=== PATIENT | male | born 1950 | race Caucasian/White ===

== ENCOUNTER 2020-03-23 19:31 | Emergency (ER) | payer MEDICARE ==
[~2020-03-23] VITALS: Ht 177.8 cm; Wt 125.2 kg
[2020-03-23] MEDS ORDERED: OXYC5 PO (20:06)
[2020-03-23] MEDS ORDERED: TIZANIDINE (20:07)
[2020-03-23] MEDS ORDERED: Fosinopril Sodi10 MG PO (20:08)
[2020-03-23] MEDS ORDERED: POTASSIUM CHLORIDE E PO (20:08)
[2020-03-23] MEDS ORDERED: FURO40 PO (20:08)
[2020-03-23] MEDS ORDERED: NIFEDIPINE ER 60 MG PO (20:09)
[2020-03-23] MEDS ORDERED: [UNRECOGNIZED DRUG - OTHER] PO (20:09)
[2020-03-23] MEDS ORDERED: GLIM2 PO (20:09)
[2020-03-23 20:14] LABS: BASOPHILS ABSOLUTE AUTO 0.08 K/mm3 (0.00-0.23); BASOPHILS PERCENT AUTO 1 % (0-2); EOSINOPHILS ABSOLUTE AUTO 0.12 K/mm3 (0.00-0.68); EOSINOPHILS PERCENT AUTO 1 % (0-6); Hematocrit 35.4 % (37.0-53.0); Hemoglobin 11.4 g/dL (13.5-17.5); IMMATURE GRAN ABSOLUTE AUTO 0.03 K/mm3 (0.00-0.10); IMMATURE GRAN PERCENT AUTO 0 % (0-1); LYMPHOCYTES ABSOLUTE AUTO 2.17 K/mm3 (0.84-5.20); LYMPHOCYTES PERCENT AUTO 26 % (21-46); MONOCYTES PERCENT AUTO 13 % (4-13); Mean Corpuscular HGB 31.1 pg (26.0-34.0); Mean Corpuscular HGB Conc 32.2 g/dL (31.5-36.5); Mean Corpuscular Volume 97 fL (80-100); Mean Platelet Volume 10.6 fL (9.1-12.4); NEUTROPHILS ABSOLUTE AUTO 4.95 K/mm3 (1.96-9.15); NEUTROPHILS PERCENT AUTO 59 % (41-73); Platelet Count 210 K/mm3 (150-400); RDW Coefficient Variation 12.7 % (11.7-14.2); RDW Standard Deviation 45.2 fL (35.1-46.3); Red Blood Cell Count 3.67 M/mm3 (4.30-5.90); White Blood Cell Count 8.45 K/mm3 (4.00-11.30)
[2020-03-23 20:26] LABS: Albumin, Blood 2.8 g/dL (3.4-5.0); Albumin/Globulin Ratio 0.7 (0.8-1.8); Bilirubin, Total 0.7 mg/dL (0.1-1.0); Calcium, Blood 9.4 mg/dL (8.5-10.1); Creatinine, Blood 1.39 mg/dL (0.60-1.20); Globulin, Blood 3.8 g/dL (2.2-4.0); Potassium, Blood 4.3 mmol/L (3.5-5.5); Total Protein, Blood 6.6 g/dL (6.4-8.2)
[2020-03-24] MEDS ORDERED: Fosinopril Sodi20 MG PO (13:47)
[2020-03-24] MEDS ORDERED: LABE200 PO (13:47)
[2020-03-24] MEDS ORDERED: Actos30 MG PO (13:48)
[2020-03-24] MEDS ORDERED: K-Dur 20 meq T20 MEQ PO (13:48)
[2020-03-24] MEDS ORDERED: GLIM2 PO (13:48)
[2020-03-24] MEDS ORDERED: Afeditab Cr60 MG PO (13:49)
== END 2020-03-24 00:34 | disposition home or self-care (01) ==
LOC: ER 19:31
PROVIDERS: Emergency Medicine
DX: I95.9 Hypotension, unspecified (principal); I10 Essential (primary) hypertension; E11.9 Type 2 diabetes mellitus without complications; Z79.899 Other long term (current) drug therapy
CPT/HCPCS: 71045; 80053; 85025; 93005; 93010; 96360; 96361; 99285-25; J7030

== ENCOUNTER 2020-03-24 10:21 | Inpatient (IN) | payer MEDICARE ==
[~2020-03-24] VITALS: Ht 177.8 cm; Wt 107.0 kg
[~2020-03-24 10:21] MED LIST: FURO40 PO; Fosinopril Sodi10 MG PO; GLIM2 PO; NIFEDIPINE ER 60 MG PO; OXYC5 PO; POTASSIUM CHLORIDE E PO; TIZANIDINE; [UNRECOGNIZED DRUG - OTHER] PO
[2020-03-24 11:04] LABS: BASOPHILS ABSOLUTE AUTO 0.05 K/mm3 (0.00-0.23); BASOPHILS PERCENT AUTO 1 % (0-2); EOSINOPHILS ABSOLUTE AUTO 0.05 K/mm3 (0.00-0.68); EOSINOPHILS PERCENT AUTO 1 % (0-6); Hematocrit 39.3 % (37.0-53.0); Hemoglobin 12.7 g/dL (13.5-17.5); IMMATURE GRAN ABSOLUTE AUTO 0.03 K/mm3 (0.00-0.10); IMMATURE GRAN PERCENT AUTO 0 % (0-1); LYMPHOCYTES ABSOLUTE AUTO 1.16 K/mm3 (0.84-5.20); LYMPHOCYTES PERCENT AUTO 14 % (21-46); MONOCYTES ABSOLUTE AUTO 0.94 K/mm3 (0.16-1.47); MONOCYTES PERCENT AUTO 11 % (4-13); Mean Corpuscular HGB 30.8 pg (26.0-34.0); Mean Corpuscular HGB Conc 32.3 g/dL (31.5-36.5); Mean Corpuscular Volume 95 fL (80-100); Mean Platelet Volume 10.5 fL (9.1-12.4); NEUTROPHILS ABSOLUTE AUTO 6.15 K/mm3 (1.96-9.15); NEUTROPHILS PERCENT AUTO 73 % (41-73); Platelet Count 216 K/mm3 (150-400); RDW Coefficient Variation 12.7 % (11.7-14.2); RDW Standard Deviation 44.9 fL (35.1-46.3); Red Blood Cell Count 4.13 M/mm3 (4.30-5.90); White Blood Cell Count 8.38 K/mm3 (4.00-11.30)
[2020-03-24 11:26] LABS: Troponin I <0.015 ng/mL (0.000-0.040)
[2020-03-24 11:27] LABS: Alanine Aminotransfer (ALT/SGP 26 U/L (12-78); Albumin, Blood 2.8 g/dL (3.4-5.0); Albumin/Globulin Ratio 0.7 (0.8-1.8); Alk Phos 82 U/L (50-136); Anion Gap 4 mmol/L (6-16); Aspartate Aminotrans (AST/SGOT 14 U/L (12-37); Bilirubin, Total 0.6 mg/dL (0.1-1.0); Blood Urea Nitrogen 21 mg/dL (8-24); Bun/Creatinine Ratio 21.9 (12.0-20.0); CO2, Blood 28 mmol/L (21-32); Calcium, Blood 9.7 mg/dL (8.5-10.1); Chloride, Blood 107 mmol/L (98-108); Creatinine, Blood 0.96 mg/dL (0.60-1.20); Globulin, Blood 4.3 g/dL (2.2-4.0); Glomerular Filtration Rate >60 (60-); Glucose, Blood 181 mg/dL (70-99); Potassium, Blood 4.6 mmol/L (3.5-5.5); Sodium, Blood 139 mmol/L (136-145); Total Protein, Blood 7.1 g/dL (6.4-8.2)
[2020-03-24] MEDS ORDERED: LABE200 PO (13:47)
[2020-03-24] MEDS ORDERED: Fosinopril Sodi20 MG PO (13:47)
[2020-03-24] MEDS ORDERED: K-Dur 20 meq T20 MEQ PO (13:48)
[2020-03-24] MEDS ORDERED: GLIM2 PO (13:48)
[2020-03-24] MEDS ORDERED: Actos30 MG PO (13:48)
[2020-03-24] MEDS ORDERED: Afeditab Cr60 MG PO (13:49)
--- NOTE | 2020-03-24 18:06 | NUR ---
PT ADMITTED FROM ER THIS SHIFT FOR PE. PT IS IN NO DISTRESS. HE IS ON 4 L O2 WHICH IS NOT HIS BASELINE. PT IS ALERT AND ORIENTED AND ABLE TO EXPRESS ANY CONCERNS. PTS LEFT ARM IS FLACID DUE TO RECENT AFFECTS FROM NECK SURGURY. HE REQUIRES ASSISTANCE WITH SOME ADL'S . HIS NECK REMAINS IN A BRACE AT THIS TIME. PT IS ABLE TO AMBULATE , REQUIRING ASSISTANCE GETTING OUT OF BED D/T LEFT ARM . PT REPORTS NO PAIN, SOB UPON EXERCTION. CALL LIGHT WITHIN REACH.
--- NOTE | 2020-03-25 04:19 | NUR ---
03/25/20 0245 PT HAD SUDDEN ONSET OF NAUSIA WITH BARRETO EMISIS. PT CLEANED UP, ORDER FOR ZOFRAN RECEUVED, PT HAD ANOTHER 100 CC GREEN BILE EMISIS BEFORE ZOFRAN GIVEN. pT FEELS BETTER AFTER ZOFRAN, UP TO BEDSIDE WHILE LINEN CHANGED. ORAL CARE GIVEN. DENIES PAIN.
[2020-03-25 05:11] LABS: BASOPHILS ABSOLUTE AUTO 0.05 K/mm3 (0.00-0.23); BASOPHILS PERCENT AUTO 1 % (0-2); EOSINOPHILS ABSOLUTE AUTO 0.07 K/mm3 (0.00-0.68); EOSINOPHILS PERCENT AUTO 1 % (0-6); Hematocrit 38.3 % (37.0-53.0); IMMATURE GRAN ABSOLUTE AUTO 0.08 K/mm3 (0.00-0.10); IMMATURE GRAN PERCENT AUTO 1 % (0-1); LYMPHOCYTES ABSOLUTE AUTO 1.15 K/mm3 (0.84-5.20); LYMPHOCYTES PERCENT AUTO 12 % (21-46); MONOCYTES ABSOLUTE AUTO 0.96 K/mm3 (0.16-1.47); MONOCYTES PERCENT AUTO 10 % (4-13); Mean Corpuscular HGB 30.2 pg (26.0-34.0); Mean Corpuscular HGB Conc 31.3 g/dL (31.5-36.5); Mean Corpuscular Volume 97 fL (80-100); Mean Platelet Volume 10.6 fL (9.1-12.4); NEUTROPHILS PERCENT AUTO 76 % (41-73); Platelet Count 224 K/mm3 (150-400); RDW Coefficient Variation 12.6 % (11.7-14.2); RDW Standard Deviation 45.5 fL (35.1-46.3); Red Blood Cell Count 3.97 M/mm3 (4.30-5.90); White Blood Cell Count 9.41 K/mm3 (4.00-11.30)
--- NOTE | 2020-03-25 06:16 | NUR ---
Rn summary: Patient is alert and oriented. He is very pleasant and cooperative. Pt has had no further emisis and has been resting well since 0230. Pt does continue to be SOB with activity. He has left arm weakness but his hand works well. Pt is able to stand and get out of bed independantly. Pt wears a cervical collar. Pt breath sound are clear but absent in R base. Pt is on 4 liters of O2 with O2 sats at 96%. Pt uses the call light apropriately.
--- NOTE | 2020-03-25 17:40 | NUR ---
NO ACUTE CHANGES. PT TOLERATING 2 L 02. UP WITH PT. PT ABLE TO AMBULATE WITH SBA. NO DISTRESS NOTED.
--- NOTE | 2020-03-26 04:41 | NUR ---
SHIFT SUMMARY PT HAS HAD NO ACUTE CHANGES THIS SHIFT, NO C/O ANY KIND, A&O, VERY PLEASANT, ABLE TO MAKE NEEDS KNOWN, APPEARS TO BE SLEEPING AT THIS TIME, CALL LIGHT IN REACH, WILL CONT TO MONITOR UNTIL REPORT GIVEN TO DAY RN.
--- NOTE | 2020-03-26 18:55 | NUR ---
SHIFT SUMMARY- PT IS A/O, PLESANT AND COOPERATIVE. PLANNED TO DISCHARGE TODAY, BUT PT FAMILY FELT IT WAS UNSAFE FOR HIM TO RETURN HOME. WORKING WITH DISCHARGE PLANNING TO POSSIBLY SEND HIM TO SNF TOMORROW. SPOKE WITH PT ABOUT SHELTER PLANS. HE IS EATING AND DRINKING WELL. HE WORKED WITH PHYSICAL THERAPY AND OCCUPATIONAL THERAPY AND TOLERATED WELL.
--- NOTE | 2020-03-27 05:04 | NUR ---
SHIFT SUMMARY PT HAS AHD NO ACUTE CHANGES THIS SHIFT, NO C/O ANY KIND, PT HAS BEEN INDEP IN ROOM, MAINTAINING O2 SATS GREATER THAN 90% ON RA, SLEPT T/O THE NIGHT AND AT THIS TIME, CALL LIGHT IN REACH, WILL CONT TO MONITOR UNTIL REPORT GIVEN TO DAY RN.
[2020-03-27] MEDS ORDERED: NIFE30ER PO (11:10)
[2020-03-27] MEDS ORDERED: XARELTO15 MG PO (11:11)
[2020-03-27] MEDS ORDERED: XARELTO20 MG PO (11:12)
--- NOTE | 2020-03-27 15:09 | NUR ---
Discharge Summary Report given to receiving nurse Kristie @ [facility]. Discharge to SNF. Daugther at bedside during discharge. IV removed, WNL. Discharge paperwork packet given to patient to take over to receiving facility. Informed Kristie of Pasquale and that patient is prone to bleeding, pressure dressing applied to IV site. Personal belongings sent with patient, daughter helped bagged. Escorted by ANALYSIS LEAD via w/c and transported via UV. Patient has been independent in room, shaved by ANALYSIS LEAD before discharge. A/Ox4, pleasant and cooperative. No c/o pain, nausea, SOB, cp. Afebrile, VSS.
== END 2020-03-27 15:08 | DRG 175 ==
LOC: ER 10:21 → MEDS 13:58
PROVIDERS: Physician Assistant; ADMIT Hospitalist
DX: I26.99 Other pulmonary embolism without acute cor pulmonale (principal); J96.01 Acute respiratory failure with hypoxia; E11.9 Type 2 diabetes mellitus without complications; I10 Essential (primary) hypertension; G47.30 Sleep apnea, unspecified; M25.512 Pain in left shoulder; E04.1 Nontoxic single thyroid nodule; E66.9 Obesity, unspecified; Z68.39 Body mass index [BMI] 39.0-39.9, adult; Z79.84 Long term (current) use of oral hypoglycemic drugs
CPT/HCPCS: 36415; 71045; 71260; 73030; 80053; 82947; 83880; 84484; 85025; 93005; 93010; 94761; 97110; 97116; 97163; 97165; 97530; 97535; 99285-25; A9270; A9270-GY; J1650; J2405; Q9967; U0002

== ENCOUNTER → 2024-04-07 | Outpatient (CLI) | payer OTHER ==
[~2024-04-07] MED LIST changes: +Actos30 MG PO; +Afeditab Cr60 MG PO; +Fosinopril Sodi20 MG PO; +K-Dur 20 meq T20 MEQ PO; +LABE200 PO; +NIFE30ER PO; +XARELTO15 MG PO; +XARELTO20 MG PO
== END | disposition home or self-care (01) ==
LOC: LAB 15:54 → LAB SHORT 15:54
PROVIDERS: Internal Medicine Hematology & Oncology
DX: D50.0 Iron deficiency anemia secondary to blood loss (chronic) (principal)
CPT/HCPCS: 82728; 83540; 83550

== ENCOUNTER → 2024-08-11 | Outpatient (CLI) | payer OTHER ==
[2024-08-11 17:21] LABS: BASOPHILS ABSOLUTE AUTO 0.09 K/mm3 (0.00-0.23); BASOPHILS PERCENT AUTO 1 % (0-2); EOSINOPHILS ABSOLUTE AUTO 0.14 K/mm3 (0.00-0.68); EOSINOPHILS PERCENT AUTO 2 % (0-6); Hematocrit 41.4 % (37.0-53.0); Hemoglobin 13.8 g/dL (13.5-17.5); IMMATURE GRAN ABSOLUTE AUTO 0.02 K/mm3 (0.00-0.10); IMMATURE GRAN PERCENT AUTO 0 % (0-1); LYMPHOCYTES ABSOLUTE AUTO 2.54 K/mm3 (0.84-5.20); LYMPHOCYTES PERCENT AUTO 27 % (21-46); MONOCYTES ABSOLUTE AUTO 1.15 K/mm3 (0.16-1.47); MONOCYTES PERCENT AUTO 12 % (4-13); Mean Corpuscular HGB 32.5 pg (26.0-34.0); Mean Corpuscular HGB Conc 33.3 g/dL (31.5-36.5); Mean Corpuscular Volume 97 fL (80-100); Mean Platelet Volume 10.8 fL (9.1-12.4); NEUTROPHILS ABSOLUTE AUTO 5.42 K/mm3 (1.96-9.15); NEUTROPHILS PERCENT AUTO 58 % (41-73); Platelet Count 220 K/mm3 (150-400); RDW Coefficient Variation 13.7 % (11.7-14.2); RDW Standard Deviation 49.4 fL (35.1-46.3); Red Blood Cell Count 4.25 M/mm3 (4.30-5.90); White Blood Cell Count 9.36 K/mm3 (4.00-11.30)
== END | disposition home or self-care (01) ==
LOC: LAB 16:04 → LAB SHORT 16:04
PROVIDERS: Internal Medicine Hematology & Oncology
DX: E61.1 Iron deficiency (principal)
CPT/HCPCS: 85025

== ENCOUNTER → 2024-11-10 | Outpatient (CLI) | payer OTHER ==
[2024-11-10 17:31] LABS: BASOPHILS ABSOLUTE AUTO 0.07 K/mm3 (0.00-0.23); BASOPHILS PERCENT AUTO 1 % (0-2); EOSINOPHILS ABSOLUTE AUTO 0.11 K/mm3 (0.00-0.68); EOSINOPHILS PERCENT AUTO 1 % (0-6); Hematocrit 41.6 % (37.0-53.0); Hemoglobin 13.9 g/dL (13.5-17.5); IMMATURE GRAN ABSOLUTE AUTO 0.02 K/mm3 (0.00-0.10); IMMATURE GRAN PERCENT AUTO 0 % (0-1); LYMPHOCYTES ABSOLUTE AUTO 2.28 K/mm3 (0.84-5.20); LYMPHOCYTES PERCENT AUTO 27 % (21-46); MONOCYTES ABSOLUTE AUTO 1.04 K/mm3 (0.16-1.47); MONOCYTES PERCENT AUTO 12 % (4-13); Mean Corpuscular HGB 32.1 pg (26.0-34.0); Mean Corpuscular HGB Conc 33.4 g/dL (31.5-36.5); Mean Corpuscular Volume 96 fL (80-100); Mean Platelet Volume 11.1 fL (9.1-12.4); NEUTROPHILS ABSOLUTE AUTO 5.04 K/mm3 (1.96-9.15); NEUTROPHILS PERCENT AUTO 59 % (41-73); Platelet Count 229 K/mm3 (150-400); RDW Standard Deviation 46.7 fL (35.1-46.3); Red Blood Cell Count 4.33 M/mm3 (4.30-5.90); White Blood Cell Count 8.56 K/mm3 (4.00-11.30)
[2024-11-10 19:02] LABS: Percent Saturation 40.8 % (20.0-50.0)
== END | disposition home or self-care (01) ==
LOC: LAB SHORT 15:26 → LAB 15:26
PROVIDERS: Internal Medicine Hematology & Oncology
DX: D50.9 Iron deficiency anemia, unspecified (principal)
CPT/HCPCS: 82728; 83540; 83550; 85025